=== PATIENT | male | born 1990 | race African-American/Black ===

== ENCOUNTER 2022-04-18 12:15 | Emergency (ER) | payer OTHER ==
[2022-04-18] MEDS ORDERED: Metoclopramide HCl 10 MG/2 ML VIAL ONE (14:42)
[2022-04-18] MEDS ORDERED: Ketorolac Tromethamine 30 MG/ML VIAL ONE (14:42)
[2022-04-18] MEDS ORDERED: Acetaminophen 500 MG TAB ONE (14:42)
== END 2022-04-18 17:18 | disposition home or self-care (01) ==
LOC: ERS 12:15
DX: R51.9 Headache, unspecified (principal); I10 Essential (primary) hypertension
CPT/HCPCS: 96365; 96375; J1885; J2765